=== PATIENT | female | born 1965 | race Caucasian/White ===

== ENCOUNTER 2017-06-08 12:23 | Outpatient (CLI) | payer OTHER ==
[~2017-06-08] VITALS: Ht 167.6 cm; Wt 95.3 kg
[2017-06-08 12:40] VITALS: BP 127/91
[2017-06-08] MEDS ORDERED: BUPR150T7 PO (12:45)
[2017-06-08] MEDS ORDERED: LEVO112T2 PO (12:45)
[2017-06-08] MEDS ORDERED: SIMV20TA3 PO (12:45)
[2017-06-09] MEDS ORDERED: HYDR-3820 PO (10:54)
== END 2017-06-08 12:58 | disposition home or self-care (01) ==
LOC: PREOP 12:23 → EDUNIT# 13:00
PROVIDERS: ATTEND Podiatrist
DX: Z01.812 Encounter for preprocedural laboratory examination (principal); S82.402A Unspecified fracture of shaft of left fibula, initial encounter for closed fracture; X58.XXXA Exposure to other specified factors, initial encounter; Y99.8 Other external cause status
CPT/HCPCS: 84703; 87081

== ENCOUNTER 2017-06-09 07:23 | Day surgery (SDC) | payer OTHER ==
[~2017-06-09] VITALS: Ht 167.6 cm; Wt 95.3 kg
[~2017-06-09 07:23] MED LIST: BUPR150T7 PO; LEVO112T2 PO; SIMV20TA3 PO
[2017-06-09 07:40] VITALS: BP 140/85
[2017-06-09] MEDS ORDERED: CATHETER FLUSH 10 ML SYR IV PRN (07:45)
[2017-06-09] MEDS ORDERED: ceFAZolin 2 GM/NS 50 ML IV ONE (07:45)
[2017-06-09] MEDS ORDERED: BUPIVACAINE 0.5% 30 ML (SENSORCAINE) VIAL ONE (07:48)
[2017-06-09] MEDS: LACTATED RINGERS 1,000 ML IV PRN ×2 (08:16→09:15)
[2017-06-09] MEDS ORDERED: proPOfol 200 MG/20 ML (DIPRIVAN) VIAL IV ONE (08:31)
[2017-06-09] MEDS ORDERED: SEVOFLURANE (ULTANE) 15 ML INHAL SOLN ONE ×7 (08:31→10:36)
[2017-06-09] MEDS ORDERED: LIDOCAINE PF 2% 5 ML (XYLOCAINE) VIAL ONE (08:31)
[2017-06-09] MEDS ORDERED: DEXAMETHASONE 10 MG/ML (DECADRON) 1 ML VIAL ONE (08:31)
[2017-06-09] MEDS ORDERED: MIDAZOLAM 2 MG/2 ML (VERSED) VIAL ONE (08:32)
[2017-06-09] MEDS ORDERED: fentaNYL INJECTION 100 MCG/2 ML AMP ONE ×2 (08:32)
[2017-06-09] MEDS ORDERED: LACTATED RINGERS 1,000 ML IV PRN (08:33)
[2017-06-09] MEDS ORDERED: FAMOTIDINE 20MG/2ML IV (PEPCID) IV ONE (08:45)
[2017-06-09] MEDS ORDERED: ONDANSETRON 4 MG/2 ML (SDV) Z0FRAN IV ONE (08:45)
[2017-06-09] MEDS ORDERED: LACTATED RINGERS 1,000 ML IV ONE (10:36)
[2017-06-09] MEDS ORDERED: ONDANSETRON 4 MG/2 ML (SDV) Z0FRAN ONE (10:50)
[2017-06-09] MEDS ORDERED: HYDROmorphone (DILAUDID) 2 MG/ML VIAL ONE (10:50)
[2017-06-09] MEDS ORDERED: morphine INJ 10 MG/ML 1ML (SYR OR VIAL) ONE (10:50)
[2017-06-09] MEDS ORDERED: HYDR-3820 PO (10:54)
--- NOTE | 2017-06-09 10:56 | Discharge Inst-Surgical ---
Discharge Inst-Surgical Consults/Follow Up Goal/Follow Up Appt.: Call for follow up in [address] Vergara. [phone] Patient Instructions: Keep Dressing Clean, Dry, and Intact to the Left ankle. Remain Nonweight bearing to the left leg. TODD VERGARA DPM Jun 09, 2017 10:56
[2017-06-09] MEDS ORDERED: HYDROmorphone (DILAUDID) 2 MG/ML VIAL IVP PRN (11:00)
[2017-06-09] MEDS ORDERED: ONDANSETRON 4 MG/2 ML (SDV) Z0FRAN IVP PRN (11:00)
[2017-06-09] MEDS: morphine INJ 10 MG/ML 1ML (SYR OR VIAL) IVP PRN ×2 (11:11→11:16)
[2017-06-09 11:50] VITALS: BP 127/88
[2017-06-09] MEDS ORDERED: HYDROcodone/APAP 10 MG/325 MG (LORTAB) TAB PO ONE (12:02)
[2017-06-09] MEDS ORDERED: HYDROcodone/APAP 10 MG/325 MG (LORTAB) TAB PO PRN (12:15)
[2017-06-09 12:20] VITALS: BP 119/86
[2017-06-09 12:50] VITALS: BP 121/87
[2017-06-09 12:58] VITALS: BP 121/87
--- NOTE | 2017-06-09 18:54 | Diagnostic Imaging Report ---
EXAMINATION: Intraoperative views of the left ankle. INDICATION: Internal fixation of a left fibula fracture. FLUOROSCOPY TIME: 53 seconds of fluoroscopy time was utilized. FINDINGS: There is internal fixation plate and screws through the distal fibula with the fracture seen in good alignment. The ankle mortise is in good alignment. IMPRESSION: Internal fixation of the distal fibula in good alignment. Dictated by: Dictated on workstation # [id number]
--- NOTE | 2017-06-11 23:49 | OPERATIVE REPORT ---
DATE OF SERVICE: 06/09/2017 SURGEON: Reid Vergara DPM SECURITY INCIDENT RESPONSE SPECIALIST: None. PREOPERATIVE DIAGNOSIS: Distal fibular fracture of the left lower extremity. POSTOPERATIVE DIAGNOSIS: Distal fibular fracture of the left lower extremity. PROCEDURE PERFORMED: Open reduction internal fixation of distal fibular fracture, left lower extremity. ANESTHESIA: General anesthesia. HEMOSTASIS: A pneumatic band at 23 mmHg. BLOOD LOSS: Minimal. MATERIALS USED: Acumed placement of screws, 3-0 Vicryl and skin vini. INTRAOPERATIVE INJECTABLES: 20 mL 0.5% Marcaine plain. COMPLICATIONS: None. INDICATION FOR PROCEDURE: The patient is a 52-year-old female with a history of a left ankle fracture sustaining a spiral distal fibular fracture starting at the level of the ankle joint. She has been made aware of the risks and benefits of the surgery, as well as any alternatives to undergoing the surgery and she has signed consent prior to being taken back to the OR. DESCRIPTION OF PROCEDURE: Under mild sedation, the patient was brought into the OR and placed on the operating table in the supine position. Following administration of general anesthesia, a pneumatic thigh tourniquet was placed on the left lower extremity. The left lower extremity was prepped and draped in an aseptic manner. After appropriate timeout was performed, the left lower extremity was identified as the surgical site. Next, an approximately 6 inch incision was over the distal aspect of the fibula and the incision was deepened down to the level of the bone with care being taken to avoid all major vascular structures. All bleeders were cauterized and ligated as necessary. The fracture site was identified. It was freed of any hematogenous debris and the fracture was then reduced and temporarily fixated with K-wires. There was an adequate reduction that was noted. Then, 3.5 mm interfragmentary compression screw was then placed across the fibular fracture and there was excellent compression that was noted. A lateral plate was then fixated with a combination of locking and non-locking screws. The wound was then flushed with copious amounts of sterile saline. Final fluoroscopic views were taken. Adequate reduction was seen. Stress abduction external rotation test was performed of the ankle and it was noted that the syndesmosis was stable at this time. The deep tissues were then reapproximated and closed with 3-0 Vicryl, subcutaneous tissues were reapproximated with 3-0 Vicryl and skin was reapproximated with the wound edges well everted using skin vini. Then, 20 mL of 0.5% Marcaine plain were injected in the area of the surgery and the foot was dressed with a dry sterile dressing consisting of 4x4s, cast padding, Chacorta wrap and a posterior splint with same materials and Chacorta wrap. The patient tolerated the procedure and anesthesia well. She was transferred from the OR to recovery with vital signs stable and neurovascular status intact of the left lower extremity. Job ID: [id number] DocumentID: [id number] Dictated Date: 06/09/2017 12:48:07 Medical Coding Technician Date: 06/09/2017 15:36:13 Dictated By: REID VERGARA DPM
== END 2017-06-09 13:30 | disposition home or self-care (01) ==
LOC: SDC 07:23
PROVIDERS: ATTEND Podiatrist
DX: S82.832A Other fracture of upper and lower end of left fibula, initial encounter for closed fracture (principal); W19.XXXA Unspecified fall, initial encounter; F41.9 Anxiety disorder, unspecified; F32.9 Major depressive disorder, single episode, unspecified; E07.9 Disorder of thyroid, unspecified; Z79.899 Other long term (current) drug therapy